=== PATIENT | female | born 1965 | race Caucasian/White ===

== ENCOUNTER 2016-10-04 08:08 | Inpatient (IN) | payer OTHER ==
[~2016-10-04] VITALS: Ht 165.1 cm; Wt 87.6 kg
[2016-10-04] VITALS (10 sets, daily range): BP systolic 149–187; BP diastolic 56–80
[~2016-10-04 08:08] MED LIST: GLIPIZIDE10 MG PO; LEVEMIR100 UNIT/2 SC; LOSARTAN-HCTZ1 EAC1 PO; METFORMIN HCL1000 MG PO; ZOFRAN4 MG PO
[2016-10-04 08:30] LABS: CREATININE 0.3 mg/dL (0.6-1.3); POTASSIUM 4.2 mEq/L (3.7-5.4)
[2016-10-04 08:41] LABS: EOSINOPHIL (%) 0.8 % (0-5); EOSINOPHIL COUNT 0.1 K/uL (0-0.3); HEMATOCRIT 45.8 % (36.0-46.0); IMMATURE GRANULOCYTE (%) 0.4 % (0.0-0.7); IMMATURE GRANULOCYTE COUNT 0.3 K/uL; LYMPHOCYTE COUNT 2.3 K/uL (1.0-2.8); MCH 29.4 PG (29.0-34.0); MCHC 35.2 G/DL (30.0-36.0); MCV 83.6 FL (83-99); MEAN PLAT.VOLUME 10.2 uM^3 (9.5-12.4); MONOCYTE (%) 3.9 % (3-12); MONOCYTE COUNT 0.3 K/uL (0-0.8); NEUTROPHIL COUNT 5.5 K/uL (1.8-6.4); PLATELET COUNT 147 K/uL (156-360); RBC DIS.WIDTH-CV 12.2 % (11.8-14.6); RED BLOOD COUNT 5.48 M/uL (3.80-5.20); WHITE BLOOD COUNT 8.3 K/uL (4.1-10.2)
[2016-10-04 08:53] LABS: PROTHROMBIN TIME 10.6 (9.2-11.2); PTT 25.1 (25-32)
[2016-10-04 08:59] LABS: AMYLASE 38 IU/L (1-118); CHLORIDE 104 mEq/L (99-109); POTASSIUM 4.4 mEq/L (3.7-5.4); SODIUM 137 mEq/L (136-147)
[2016-10-04 09:01] LABS: GLUCOSE 336 mg/dL (70-99)
[2016-10-04 09:02] LABS: ANION GAP 19 MEQ/L (2-14)
[2016-10-04 09:04] LABS: SERUM ETHYL ALCOHOL < 10 mg/dL
[2016-10-04 09:05] LABS: GFR ESTIMATE (CALCULATED) > 59 mL/min/; UREA NITROGEN (BUN) 12 mg/dL (9-23)
[2016-10-04 09:08] LABS: LIPASE 11 U/L (1.0-51.0)
[2016-10-04 09:15] LABS: TROP-I INTERPRETATION NEGATIVE; TROPONIN-I < 0.01 ng/mL (0.0-0.30)
[2016-10-04 09:17] LABS: QUANTITATIVE HCG < 4.0 MIU/ML
[2016-10-04 10:15] LABS: CARBON DIOXIDE (BICARBONATE) 20.1 MEQ/L (20-31)
[2016-10-04 11:37] LABS: ADD MIUA? NO; BILIRUBIN NEGATIVE; BLOOD NEGATIVE; COLOR STRAW ((YELLOW)); GLUCOSE (STRIP) >=500; KETONES 80; LEUKOCYTES NEGATIVE; NITRITE NEGATIVE; PROTEIN (STRIP) NEGATIVE; SPECIFIC GRAVITY 1.039 (1.000-1.030); UCUL ADDED? NO; UROBILINOGEN 0.2 MG/DL (0.2-1.0)
[2016-10-04 11:47] LABS: AMPHETAMINE NEGATIVE (500 ng/mL); BARBITURATES NEGATIVE (200 ng/mL); BENZODIAZEPINES NEGATIVE (150 ng/mL); COCAINE NEGATIVE (150 ng/mL); INTERNAL CONTROLS VALID? YES; METHADONE NEGATIVE (200 ng/mL); METHAMPHETAMINE NEGATIVE (500 ng/mL); OPIATES (MORPHINE) NEGATIVE (100 ng/mL); OXYCODONE NEGATIVE (100 ng/mL); PHENCYCLIDINE NEGATIVE (25 ng/mL); PROPOXYPHENE NEGATIVE (300 ng/mL); THC CANNABINOIDS NEGATIVE (50 ng/mL); TRICYCLIC ANTIDEPRESSANTS NEGATIVE (300 ng/mL)
[2016-10-04 12:05] LABS: POINT-OF-CARE METER ID UU14100415
[2016-10-04 12:37] LABS: CHLORIDE 111 mEq/L (99-109); POTASSIUM 4.5 mEq/L (3.7-5.4)
[2016-10-04 12:38] LABS: SODIUM 136 mEq/L (136-147)
[2016-10-04 12:39] LABS: GLUCOSE 236 mg/dL (70-99)
[2016-10-04 12:41] LABS: ANION GAP 13 MEQ/L (2-14)
[2016-10-04 12:43] LABS: GFR ESTIMATE (CALCULATED) > 59 mL/min/
[2016-10-04 12:44] LABS: UREA NITROGEN (BUN) 9 mg/dL (9-23)
[2016-10-04] MEDS ORDERED: ASPIR-TRIN325 M1 PO (13:43)
[2016-10-04] MEDS ORDERED: PEPTO BISMOL240 ML PO (13:44)
[2016-10-04] MEDS ORDERED: ZYRTEC10 M3 PO (13:44)
[2016-10-04 14:55] LABS: Estimated Average Glucose 338 mg/dL (70-123); HEMOGLOBIN A1c (GLYCOHEMOGLOB) 13.4 % HGB (Below 5.7)
[2016-10-04 14:55] LABS: MAGNESIUM 1.6 mg/dL (1.3-2.7)
[2016-10-04 15:07] LABS: TROP-I INTERPRETATION NEGATIVE; TROPONIN-I < 0.01 ng/mL (0.0-0.30)
[2016-10-04 17:29] LABS: METH RESISTANT S AUREUS PCR NEGATIVE (NEGATIVE)
[2016-10-04 17:35] LABS: PROBE CHECK PASS; SPECIMEN PROCESSING CONTROL PASS
[2016-10-04 17:54] LABS: POINT-OF-CARE METER ID UU13113803; POINT-OF-CARE USER ID 606021424
[2016-10-04 20:51] LABS: ANION GAP 11 MEQ/L (2-14); CHLORIDE 105 MEQ/L (99-109); SAMPLE HEMOLYSIS CHECK 0; SAMPLE ICTERIC CHECK 0; SAMPLE LIPEMIA CHECK 0; SODIUM 135 MEQ/L (136-147)
[2016-10-04 20:56] LABS: GFR ESTIMATE (CALCULATED) > 59 mL/min/; GLUCOSE 271 mg/dL (70-99); UREA NITROGEN (BUN) 9 mg/dL (9-23)
[2016-10-04 21:01] LABS: TROP-I INTERPRETATION NEGATIVE; TROPONIN-I 0.01 ng/mL (0.0-0.30)
[2016-10-04 21:07] LABS: POTASSIUM 3.5 MEQ/L (3.7-5.4)
[2016-10-05] VITALS (13 sets, daily range): BP systolic 143–174; BP diastolic 53–86
[2016-10-05 06:17] LABS: POINT-OF-CARE METER ID UU13113803
[2016-10-05 07:09] LABS: ANION GAP 11 MEQ/L (2-14); CHLORIDE 106 MEQ/L (99-109); GFR ESTIMATE (CALCULATED) > 59 mL/min/; GLUCOSE 241 mg/dL (70-99); HDL CHOLESTEROL 25 MG/DL (Desirable>=50); LDL CHOLESTEROL 151 mg/dL (Desirable<100); NON-HDL CHOLESTEROL 219 mg/dL (Desirable<160); POTASSIUM 3.8 MEQ/L (3.7-5.4); SAMPLE HEMOLYSIS CHECK 0; SAMPLE ICTERIC CHECK 0; SAMPLE LIPEMIA CHECK 0; SODIUM 139 MEQ/L (136-147); TOTAL CHOLESTEROL 244 mg/dL (Desirable<200); TRIGLYCERIDES 340 MG/DL (Normal: <150); UREA NITROGEN (BUN) 7 mg/dL (9-23)
[2016-10-05 11:18] LABS: POINT-OF-CARE METER ID UU14162636
[2016-10-06 05:31] LABS: POINT-OF-CARE METER ID UU14174225
[2016-10-06 08:10] VITALS: BP 180/80
[2016-10-06 08:24] LABS: POINT-OF-CARE METER ID UU14174225
[2016-10-06 11:23] LABS: POINT-OF-CARE METER ID UU14188625
[2016-10-06 11:39] VITALS: BP 184/81
[2016-10-06] MEDS ORDERED: ASPIR-LOW81 MG PO (11:44)
[2016-10-06] MEDS ORDERED: LEVEMIR100 UNIT/2 SC (11:44)
[2016-10-06] MEDS ORDERED: JANUVIA100 MG PO (11:44)
[2016-10-06] MEDS ORDERED: METFORMIN HCL500 MG PO (11:44)
[2016-10-06] MEDS ORDERED: GLIPIZIDE10 MG PO (11:44)
[2016-10-06] MEDS ORDERED: ATORVASTATIN CA40 MG PO (11:44)
[2016-10-06] MEDS ORDERED: LISINOPRIL20 MG PO (11:44)
[2016-10-06] MEDS ORDERED: LOPRESSOR25 MG PO (11:44)
[2016-10-06] MEDS ORDERED: NOVOLOG PE100 UNITS/ SC (17:21)
[2016-10-06] MEDS ORDERED: LACTATED RING1000 ML IV (17:22)
[2016-10-06] MEDS ORDERED: PEPCID20 MG IV (17:23)
[2016-10-06] MEDS ORDERED: LOVENOX40 MG/0.4 SC (17:23)
== END 2016-10-06 15:35 | DRG 64 ==
LOC: EME → EDBD 08:08 → EME 08:08 → EDOF 13:34 → 4WEST 15:30 → 5SOUTH 15:52 → 4WEST 15:52 → 5SOUTH 10-05 11:45
PROVIDERS: Emergency Medicine; Internal Medicine
DX: I63.9 Cerebral infarction, unspecified (principal); E13.10 Other specified diabetes mellitus with ketoacidosis without coma; E86.0 Dehydration; R47.81 Slurred speech; R53.1 Weakness; I65.21 Occlusion and stenosis of right carotid artery; I10 Essential (primary) hypertension; E78.5 Hyperlipidemia, unspecified; I07.1 Rheumatic tricuspid insufficiency; Z91.14 Patient's other noncompliance with medication regimen
CPT/HCPCS: 70450; 70496; 70498; 70551; 80047; 80048; 80048 91; 80061; 81003; 82010; 82150; 82803; 82948; 83036; 83605; 83690; 83735; 84443; 84484; 84702; 85025; 85610; 85730; 86850; 86900; 86901; 87040; 87641; 92507 GN; 92523 GN; 93005; 93306; 99281; 99285; G0480; J1650; J1815; J2405; J7030; J7120; S0028

== ENCOUNTER 2016-10-06 10:51 | Inpatient (IN) | payer OTHER ==
[~2016-10-06] VITALS: Ht 165.1 cm; Wt 87.9 kg
[~2016-10-06 10:51] MED LIST changes: +ASPIR-TRIN325 M1 PO; +PEPTO BISMOL240 ML PO; +ZYRTEC10 M3 PO
[2016-10-06] MEDS ORDERED: ATORVASTATIN CA40 MG PO (11:44)
[2016-10-06] MEDS ORDERED: JANUVIA100 MG PO (11:44)
[2016-10-06] MEDS ORDERED: LOPRESSOR25 MG PO (11:44)
[2016-10-06] MEDS ORDERED: GLIPIZIDE10 MG PO (11:44)
[2016-10-06] MEDS ORDERED: ASPIR-LOW81 MG PO (11:44)
[2016-10-06] MEDS ORDERED: METFORMIN HCL500 MG PO (11:44)
[2016-10-06] MEDS ORDERED: LISINOPRIL20 MG PO (11:44)
[2016-10-06] MEDS ORDERED: LEVEMIR100 UNIT/2 SC (11:44)
[2016-10-06 16:11] VITALS: BP 164/70
[2016-10-06 16:50] LABS: POINT-OF-CARE METER ID UU14174215
[2016-10-06] MEDS ORDERED: NOVOLOG PE100 UNITS/ SC (17:21)
[2016-10-06] MEDS ORDERED: LACTATED RING1000 ML IV (17:22)
[2016-10-06] MEDS ORDERED: PEPCID20 MG IV (17:23)
[2016-10-06] MEDS ORDERED: LOVENOX40 MG/0.4 SC (17:23)
[2016-10-06 21:57] LABS: POINT-OF-CARE METER ID UU14174215
[2016-10-07 00:01] VITALS: BP 138/62
[2016-10-07 06:01] LABS: HEMATOCRIT 40.4 % (36.0-46.0); MCH 29.7 PG (29.0-34.0); MCHC 33.9 G/DL (30.0-36.0); MEAN PLAT.VOLUME 10.3 uM^3 (9.5-12.4); RBC DIS.WIDTH-CV 12.1 % (11.8-14.6); RBC DIS.WIDTH-SD 38.9 % (39-53); RED BLOOD COUNT 4.61 M/uL (3.80-5.20); WHITE BLOOD COUNT 7.1 K/uL (4.1-10.2)
[2016-10-07 06:05] VITALS: BP 148/66
[2016-10-07 06:17] LABS: MCV 87.6 FL (83-99); PLATELET COUNT 252 K/uL (156-360)
[2016-10-07 06:27] LABS: ALKALINE PHOSPHATASE 47 IU/L (3-129); ANION GAP 10 MEQ/L (2-14); CHLORIDE 105 MEQ/L (99-109); GFR ESTIMATE (CALCULATED) > 59 mL/min/; GLUCOSE 159 mg/dL (70-99); POTASSIUM 3.8 MEQ/L (3.7-5.4); SAMPLE HEMOLYSIS CHECK 0; SAMPLE ICTERIC CHECK 0; SAMPLE LIPEMIA CHECK 0; SODIUM 141 MEQ/L (136-147); TOTAL BILIRUBIN 0.6 MG/DL (0.0-1.0); UREA NITROGEN (BUN) 11 mg/dL (9-23)
[2016-10-07 07:14] LABS: POINT-OF-CARE METER ID UU14174215; POINT-OF-CARE USER ID ENVGAF
[2016-10-07 12:09] LABS: POINT-OF-CARE METER ID UU14174215; POINT-OF-CARE USER ID ENVGAF
[2016-10-07 15:50] VITALS: BP 144/67
[2016-10-07 16:34] LABS: POINT-OF-CARE METER ID UU14174215
[2016-10-07 21:49] LABS: POINT-OF-CARE METER ID UU14174215
[2016-10-08 05:06] VITALS: BP 159/77
[2016-10-08 08:23] LABS: POINT-OF-CARE METER ID UU13113720
[2016-10-08 11:53] LABS: POINT-OF-CARE METER ID UU14174215; POINT-OF-CARE USER ID AHSSSJB31
[2016-10-08 15:24] VITALS: BP 145/67
[2016-10-08 16:44] LABS: POINT-OF-CARE METER ID UU13113720
[2016-10-08 22:05] LABS: POINT-OF-CARE METER ID UU14174215
[2016-10-09 05:33] VITALS: BP 158/72
[2016-10-09 07:30] LABS: POINT-OF-CARE METER ID UU14174215; POINT-OF-CARE USER ID AHSSSJB31
[2016-10-09 11:52] LABS: POINT-OF-CARE METER ID UU14174215
[2016-10-09 16:00] VITALS: BP 159/69
[2016-10-09 16:49] LABS: POINT-OF-CARE METER ID UU14174215
[2016-10-09 21:28] LABS: POINT-OF-CARE METER ID UU14174215
[2016-10-10 05:13] VITALS: BP 133/61
[2016-10-10 06:48] LABS: POINT-OF-CARE METER ID UU13113720; POINT-OF-CARE USER ID ENVGAF
[2016-10-10 11:27] LABS: POINT-OF-CARE METER ID UU13113720
[2016-10-10 15:50] VITALS: BP 132/63
[2016-10-10 16:23] LABS: POINT-OF-CARE METER ID UU14174215
[2016-10-10 21:13] LABS: POINT-OF-CARE METER ID UU14174215
[2016-10-11 05:40] VITALS: BP 136/82
[2016-10-11 06:59] LABS: POINT-OF-CARE METER ID UU13113720
[2016-10-11 10:14] VITALS: BP 123/58
[2016-10-11 11:39] LABS: POINT-OF-CARE METER ID UU13113720
[2016-10-11 15:33] VITALS: BP 143/66
[2016-10-11 16:28] LABS: POINT-OF-CARE METER ID UU14174215
[2016-10-11 21:09] LABS: POINT-OF-CARE METER ID UU14174215
[2016-10-12 05:49] VITALS: BP 147/67
[2016-10-12 07:46] LABS: POINT-OF-CARE METER ID UU13113720
[2016-10-12 07:55] VITALS: BP 137/65
[2016-10-12 11:42] LABS: POINT-OF-CARE METER ID UU13113720
[2016-10-12 15:59] VITALS: BP 122/68
[2016-10-12 16:19] LABS: POINT-OF-CARE METER ID UU14174215
[2016-10-12 21:04] VITALS: BP 135/62
[2016-10-12 21:39] LABS: POINT-OF-CARE METER ID UU14174215
[2016-10-13 06:16] VITALS: BP 115/78
[2016-10-13 06:58] LABS: POINT-OF-CARE METER ID UU14174215
[2016-10-13 11:33] VITALS: BP 145/69
[2016-10-13 11:36] LABS: POINT-OF-CARE METER ID UU14174215
[2016-10-13 15:00] VITALS: BP 115/61
[2016-10-13 16:55] LABS: POINT-OF-CARE METER ID UU13113720
[2016-10-13 20:32] VITALS: BP 138/68
[2016-10-13 21:15] LABS: POINT-OF-CARE METER ID UU13113720
[2016-10-14 04:57] VITALS: BP 131/66
[2016-10-14 07:35] LABS: POINT-OF-CARE METER ID UU13113720
[2016-10-14 11:26] LABS: POINT-OF-CARE METER ID UU13113720
[2016-10-14 15:27] VITALS: BP 138/65
[2016-10-14 16:25] LABS: POINT-OF-CARE METER ID UU13113720
[2016-10-14 21:57] LABS: POINT-OF-CARE METER ID UU14174215
[2016-10-15 06:05] VITALS: BP 126/70
[2016-10-15 07:35] LABS: POINT-OF-CARE METER ID UU13113720
[2016-10-15 11:27] LABS: POINT-OF-CARE METER ID UU13113720
[2016-10-15 15:29] VITALS: BP 127/60
[2016-10-15 16:22] LABS: POINT-OF-CARE METER ID UU13113720
[2016-10-15 21:27] LABS: POINT-OF-CARE METER ID UU14174215; POINT-OF-CARE USER ID 610211320
[2016-10-16 05:45] VITALS: BP 158/70
[2016-10-16 07:27] LABS: POINT-OF-CARE METER ID UU14174215
[2016-10-16 11:49] LABS: POINT-OF-CARE METER ID UU14174215; POINT-OF-CARE USER ID AHSSSJB31
[2016-10-16 16:00] VITALS: BP 141/65
[2016-10-16 16:31] LABS: POINT-OF-CARE METER ID UU14174215
[2016-10-16 21:42] LABS: POINT-OF-CARE METER ID UU13113720
[2016-10-17 05:55] VITALS: BP 154/76
[2016-10-17 06:56] LABS: POINT-OF-CARE METER ID UU14174215; POINT-OF-CARE USER ID ENVGAF
[2016-10-17 11:40] LABS: POINT-OF-CARE METER ID UU13113720
[2016-10-17 15:29] VITALS: BP 142/65
[2016-10-17 16:20] LABS: POINT-OF-CARE METER ID UU13113720
[2016-10-17 21:00] VITALS: BP 136/69
[2016-10-17 21:23] LABS: POINT-OF-CARE METER ID UU13113720
[2016-10-18 05:51] VITALS: BP 107/57
[2016-10-18 05:53] LABS: HEMATOCRIT 40.4 % (36.0-46.0); MCHC 33.9 G/DL (30.0-36.0); MCV 88.4 FL (83-99); MEAN PLAT.VOLUME 10.8 uM^3 (9.5-12.4); PLATELET COUNT 246 K/uL (156-360); RED BLOOD COUNT 4.57 M/uL (3.80-5.20); WHITE BLOOD COUNT 8.3 K/uL (4.1-10.2)
[2016-10-18 06:09] LABS: ALKALINE PHOSPHATASE 50 IU/L (3-129); ANION GAP 12 MEQ/L (2-14); CHLORIDE 107 MEQ/L (99-109); GFR ESTIMATE (CALCULATED) > 59 mL/min/; GLUCOSE 128 mg/dL (70-99); POTASSIUM 4.2 MEQ/L (3.7-5.4); SAMPLE HEMOLYSIS CHECK 0; SAMPLE ICTERIC CHECK 0; SAMPLE LIPEMIA CHECK 0; SODIUM 143 MEQ/L (136-147); TOTAL BILIRUBIN 0.5 MG/DL (0.0-1.0); UREA NITROGEN (BUN) 12 mg/dL (9-23)
[2016-10-18 07:36] LABS: POINT-OF-CARE METER ID UU13113720
[2016-10-18 07:48] VITALS: BP 119/57
[2016-10-18 11:52] LABS: POINT-OF-CARE METER ID UU13113720
[2016-10-18 15:44] VITALS: BP 151/67
[2016-10-18 16:57] LABS: POINT-OF-CARE METER ID UU14174215
[2016-10-18] MEDS ORDERED: FAMOTIDINE20 MG PO (20:37)
[2016-10-18] MEDS ORDERED: LEVEMIR100 UNIT/2 SC (20:37)
[2016-10-18] MEDS ORDERED: LOPRESSOR25 MG PO (20:37)
[2016-10-18] MEDS ORDERED: GLIPIZIDE10 MG PO (20:37)
[2016-10-18] MEDS ORDERED: METFORMIN HCL500 MG PO (20:37)
[2016-10-18] MEDS ORDERED: ATORVASTATIN CA40 MG PO (20:37)
[2016-10-18] MEDS ORDERED: ASPIR-LOW81 MG PO (20:37)
[2016-10-18] MEDS ORDERED: JANUVIA100 MG PO (20:37)
[2016-10-18] MEDS ORDERED: LISINOPRIL20 MG PO (20:37)
[2016-10-18 21:17] LABS: POINT-OF-CARE METER ID UU13113720
[2016-10-19 06:22] VITALS: BP 142/70
[2016-10-19 07:13] LABS: POINT-OF-CARE METER ID UU13113720
[2016-10-19 08:05] VITALS: BP 144/68
[2016-10-19 11:30] LABS: POINT-OF-CARE METER ID UU14174215; POINT-OF-CARE USER ID ENVGAF
== END 2016-10-19 14:02 | DRG 57 ==
LOC: 3WEST 10:51
PROVIDERS: Physical Medicine & Rehabilitation Pain Medicine
PROC: F07M0ZZ Range of Motion and Joint Mobility Treatment of Musculoskeletal System - Whole Body (ICD-10-PCS; principal; 2016-10-06)
DX: I69.351 Hemiplegia and hemiparesis following cerebral infarction affecting right dominant side (principal); E66.01 Morbid (severe) obesity due to excess calories; G89.29 Other chronic pain; M25.561 Pain in right knee; E78.00 Pure hypercholesterolemia, unspecified; Z79.4 Long term (current) use of insulin; E11.9 Type 2 diabetes mellitus without complications; I10 Essential (primary) hypertension; Z88.8 Allergy status to other drugs, medicaments and biological substances; I69.322 Dysarthria following cerebral infarction; I25.10 Atherosclerotic heart disease of native coronary artery without angina pectoris; E78.5 Hyperlipidemia, unspecified; D69.6 Thrombocytopenia, unspecified
CPT/HCPCS: 80053; 82948; 85027; 92507 GN; 92523 GN; 97110 GO; 97112 GO; 97530 GP; G0283 GO; J1650; J1815

== ENCOUNTER 2017-04-26 23:28 | Emergency (ER) | payer OTHER ==
[~2017-04-26] VITALS: Ht 165.1 cm; Wt 74.5 kg
[~2017-04-26 23:28] MED LIST changes: +ASPIR-LOW81 MG PO; +ATORVASTATIN CA40 MG PO; +FAMOTIDINE20 MG PO; +JANUVIA100 MG PO; +LACTATED RING1000 ML IV; +LISINOPRIL20 MG PO; +LOPRESSOR25 MG PO; +LOVENOX40 MG/0.4 SC; +METFORMIN HCL500 MG PO; +NOVOLOG PE100 UNITS/ SC; +PEPCID20 MG IV
[2017-04-27 00:04] LABS: HEMATOCRIT 36.6 % (36.0-46.0); MCH 29.8 PG (29.0-34.0); MCHC 34.2 G/DL (30.0-36.0); MCV 87.1 FL (83-99); MEAN PLAT.VOLUME 10.6 uM^3 (9.5-12.4); PLATELET COUNT 254 K/uL (156-360); RBC DIS.WIDTH-CV 12.2 % (11.8-14.6); RBC DIS.WIDTH-SD 39.4 % (39-53); WHITE BLOOD COUNT 20.2 K/uL (4.1-10.2)
[2017-04-27 00:18] LABS: CHLORIDE 95 mEq/L (99-109); POTASSIUM 4.1 mEq/L (3.7-5.4); SODIUM 132 mEq/L (136-147)
[2017-04-27 00:20] LABS: GLUCOSE 317 mg/dL (70-99)
[2017-04-27 00:21] LABS: ANION GAP 16 MEQ/L (2-14)
[2017-04-27 00:22] LABS: TOTAL BILIRUBIN 0.9 mg/dL (0.0-1.0)
[2017-04-27 00:24] LABS: ALKALINE PHOSPHATASE 98 IU/L (3-129); GFR ESTIMATE (CALCULATED) > 59 mL/min/
[2017-04-27 00:25] LABS: UREA NITROGEN (BUN) 17 mg/dL (9-23)
[2017-04-27 00:34] LABS: QUANTITATIVE HCG < 4.0 MIU/ML
[2017-04-27 04:53] LABS: POINT-OF-CARE METER ID UU13113747
[2017-04-27 05:07] LABS: CHLORIDE 99 mEq/L (99-109); POTASSIUM 3.9 mEq/L (3.7-5.4); SODIUM 134 mEq/L (136-147)
[2017-04-27 05:09] LABS: GLUCOSE 179 mg/dL (70-99)
[2017-04-27] MEDS ORDERED: ZOFRAN4 MG PO ×2 (05:09→05:57)
[2017-04-27 05:10] LABS: ANION GAP 14 MEQ/L (2-14)
[2017-04-27 05:13] LABS: GFR ESTIMATE (CALCULATED) > 59 mL/min/
[2017-04-27 05:14] LABS: UREA NITROGEN (BUN) 18 mg/dL (9-23)
[2017-04-27 06:02] VITALS: BP 104/58
[2017-04-29] MEDS ORDERED: ATORVASTATIN CA40 MG PO (14:07)
[2017-04-29] MEDS ORDERED: ALLEGRA ALLERG180 MG PO (14:08)
== END 2017-04-27 06:03 | disposition home or self-care (01) ==
LOC: EME 23:28
PROVIDERS: Emergency Medicine
DX: E11.65 Type 2 diabetes mellitus with hyperglycemia (principal); R11.10 Vomiting, unspecified; R19.7 Diarrhea, unspecified; E86.0 Dehydration; Z79.84 Long term (current) use of oral hypoglycemic drugs; F32.9 Major depressive disorder, single episode, unspecified
CPT/HCPCS: 80048; 80053; 81003; 82010; 82948; 84702; 85027; 99281; 99285; J2405; J7030; J7120

== ENCOUNTER → 2017-10-24 | Outpatient (CLI) | payer OTHER ==
[~2017-10-24] MED LIST changes: +ALLEGRA ALLERG180 MG PO
== END | disposition home or self-care (01) ==
LOC: CDC 10:41
DX: Z01.810 Encounter for preprocedural cardiovascular examination (principal); H43.11 Vitreous hemorrhage, right eye
CPT/HCPCS: 93000